=== PATIENT | male | born 1955 | race Caucasian/White ===

== ENCOUNTER 2020-06-23 10:02 | Outpatient (AMBR) | payer OTHER, SELFPAY ==
--- NOTE | 2020-06-21 17:18 | PTNOTE_ITS ---
PT Outpatient Daily Note Date of Service: 06/21/20 OP Daily Note Visit Reasons: neck pain Outpatient Physical Therapy Treatment Date: 06/21/20 Subjective: Same as last time, the R side of the C/S is sore and he loses b alance with looking up Objective: See F/S for therex Assessment: Slow progress with therapy goals due to continued high tissue irritability of c/S myofascia. Plan: Reassess Length of Time (minutes) of Treatment: 30 Minutes Office Procedures PT Procedures PT Date of Service: 06/21/20 Therapeutic Exercise 30 minutes: Yes
--- NOTE | 2020-06-23 19:38 | PT.ODS1RPT ---
PT OP Progress/Discharge Note Date of Service: 06/23/20 Progress Note/DC Note Progress Note/Discharge Note: DC Note Patient Information Visit Reasons: neck pain Service Continue Service or Discharge: Discharge Discharge Date: 06/23/20 Status Subjective: Not much progress since starting therapy. The R side of the C/S is sore and he loses balance with looking up. The arms started to get numb yesterday down to the wrist. Objective: C/S AROM: Flexion: full Extension: unable L rotation: 13 deg R: 23 deg TTP: moderate of paraspinals C/S Assessment: Pt has attended 12/12 visits with slow progress with therapy goals due to continued high tissue irritability of C/S myofascia. Pt has very limited L rotation and R rotation is also limited to about 23 deg. Pt unable to extend C/S to neutral due to dizziness. Plan: Pt is D/C'd to provider for further workup Office Procedures PT Procedures PT Date of Service: 06/23/20 Therapeutic Exercise 30 minutes: Yes PT Procedures PT Date of Service: 06/21/20 Therapeutic Exercise 30 minutes: Yes
== END 2020-07-18 23:59 | disposition home or self-care (01) ==
PROVIDERS: PCP Family Medicine; Referring Provider Family Medicine; Visit Provider Family Medicine
DX: M54.2 Cervicalgia (principal); F17.200 Nicotine dependence, unspecified, uncomplicated; R51.9 Headache, unspecified
CPT/HCPCS: 97110